=== PATIENT | female | born 1975 | race Caucasian/White ===

== ENCOUNTER 2022-02-02 16:35 | Emergency (ER) | payer OTHER ==
[~2022-02-02] VITALS: Ht 157.5 cm; Wt 113.4 kg
[2022-02-02] MEDS ORDERED: LIPITOR40 M1 (16:52)
[2022-02-02] MEDS ORDERED: TOPROL XL100 M1 (16:52)
[2022-02-02] MEDS ORDERED: VASCEPA1 GM (16:52)
[2022-02-02] MEDS ORDERED: LOSARTAN POTASS50 MG (16:52)
== END 2022-02-02 22:10 | disposition home or self-care (01) ==
LOC: ER 16:35
DX: K52.9 Noninfective gastroenteritis and colitis, unspecified (principal); E86.0 Dehydration; I10 Essential (primary) hypertension